=== PATIENT | female | born 1960 | race Caucasian/White ===

== ENCOUNTER 2023-02-28 07:55 | Day surgery (SDC) | payer OTHER ==
[2023-02-28] MEDS ORDERED: Lactated Ringers 1,000 ML IV SCH (08:00)
[2023-02-28] MEDS ORDERED: Sodium Chloride 0.9% 10 ML Syringe FLUSH PRN (08:00)
[2023-02-28] MEDS ORDERED: Midazolam 1 MG/ML 2 ML SDV ONE (08:22)
[2023-02-28] MEDS ORDERED: Propofol 200 MG/20 ML SDV ONE (08:22)
== END 2023-02-28 10:20 | disposition home or self-care (01) ==
LOC: LL.SDS 07:55
PROVIDERS: ATTEND Surgery
DX: R19.4 Change in bowel habit (principal); E11.9 Type 2 diabetes mellitus without complications; E78.5 Hyperlipidemia, unspecified; F33.0 Major depressive disorder, recurrent, mild; Z87.891 Personal history of nicotine dependence; Z79.899 Other long term (current) drug therapy; Z79.85 Long-term (current) use of injectable non-insulin antidiabetic drugs; Z79.84 Long term (current) use of oral hypoglycemic drugs; Z79.4 Long term (current) use of insulin; Z79.82 Long term (current) use of aspirin; Z88.2 Allergy status to sulfonamides; Z88.8 Allergy status to other drugs, medicaments and biological substances
CPT/HCPCS: 00812; 82947; J2250; J2704; J7120

== ENCOUNTER 2024-08-13 11:55 | Emergency (ER) | payer BC ==
[2024-08-13] MEDS ORDERED: Sodium Chloride 0.9% 10 ML Syringe FLUSH PRN ×2 (12:05→12:26)
[2024-08-13] MEDS: Ondansetron 4 MG/2 ML SDV IVPUSH ONE (12:15)
[2024-08-13] MEDS: Sodium Chloride 0.9% 1,000 ML IV ONE (12:17)
[2024-08-13 12:19] LABS: BASOPHILS ABSOLUTE AUTO 0.01 K/uL (0.00-0.20); BASOPHILS PERCENT AUTO 0.1 % (0.0-2.0); HEMATOCRIT 38.1 % (34.0-46.0); HEMOGLOBIN 13.4 g/dL (11.7-15.5); IMMATURE GRAN ABSOLUTE AUTO 0.04 10^3/uL (0.00-0.04); IMMATURE GRAN PERCENT AUTO 0.2 % (0.0-0.4); LYMPHOCYTES ABSOLUTE AUTO 0.86 K/uL (0.50-3.50); LYMPHOCYTES PERCENT AUTO 4.9 % (10.0-50.0); MEAN CORPUSCULAR HEMOGLOBIN 29.8 pg (28.2-33.3); MEAN CORPUSCULAR HGB CONC 35.2 g/dL (31.7-36.0); MEAN CORPUSCULAR VOLUME 84.9 fL (84.0-98.0); MONOCYTES ABSOLUTE AUTO 0.91 K/uL (0.00-1.00); MONOCYTES PERCENT AUTO 5.2 % (2.0-14.0); NEUTROPHILS ABSOLUTE AUTO 15.72 K/uL (1.40-7.00); NEUTROPHILS PERCENT AUTO 89.6 % (45.0-80.0); PLATELET COUNT,PLT 379 K/uL (150-350); RED BLOOD CELL COUNT 4.49 M/uL (3.77-5.09); RED CELL DISTRIBUTION WIDTH 12.7 % (11.2-14.1); WHITE BLOOD CELL COUNT,WBC 17.5 K/uL (4.0-10.2)
[2024-08-13 13:02] LABS: ALANINE AMINOTRANSFERASE,ALT 28 U/L (12-78); ALBUMIN 4.3 g/dL (3.4-5.0); ALKALINE PHOSPHATASE 104 IU/L (46-116); ASPARTATE AMNIOTRANSFERASE,AST 19 U/L (15-37); BLOOD UREA NITROGEN,BUN 15 mg/dL (7-18); CALCIUM 10.2 mg/dL (8.5-10.1); CARBON DIOXIDE,CO2 19.1 mmol/L (21.0-32.0); CHLORIDE,CL 91 mmol/L (98-107); CREATININE 0.84 mg/dL (0.51-1.17); ESTIMATED GFR 78 mL/min (>=60); GLUCOSE RANDOM 322 mg/dL (70-99); POTASSIUM,K 4.1 mmol/L (3.5-5.1); PROTEIN TOTAL,TP 8.2 g/dL (6.4-8.2); SODIUM,NA 129 mmol/L (136-145)
[2024-08-13] MEDS: Sodium Chloride 0.9% 1,000 ML IV SCH (13:41)
[2024-08-13] MEDS ORDERED: Sodium Chloride 0.9% 500 ML IV SCH (13:45)
[2024-08-13] MEDS: Promethazine 12.5 MG in Sodium Chloride 0.9% 100 ML IV ONE (14:48)
[2024-08-13] MEDS: Scopalamine 1mg/3day Transdermal Patch TOP ONE (14:51)
== END 2024-08-13 15:55 | disposition home or self-care (01) ==
LOC: LL.ED 11:55
DX: R11.2 Nausea with vomiting, unspecified (principal); E78.00 Pure hypercholesterolemia, unspecified; E11.9 Type 2 diabetes mellitus without complications; Z79.84 Long term (current) use of oral hypoglycemic drugs; Z79.899 Other long term (current) drug therapy; Z79.4 Long term (current) use of insulin; Z79.82 Long term (current) use of aspirin; Z88.2 Allergy status to sulfonamides; Z90.710 Acquired absence of both cervix and uterus
CPT/HCPCS: 36415; 80053; 82947; 83605; 85025; 96361; 96374; 96375; 99284-25; A9270-GY; J2405; J2550; J7030